=== PATIENT | male | born 1980 | race Hispanic/Latino ===

== ENCOUNTER 2017-05-24 18:44 | Emergency (ER) | payer OTHER ==
[2017-05-24 19:04] VITALS: BP 120/61; PULSE 94; RESP 16; TEMP 101.1; O2SAT 100
[2017-05-24] MEDS ORDERED: Sodium Chloride 0.9% 1,000 ML IV STA (19:25)
--- NOTE | 2017-05-24 19:25 | ED PDOC ---
Upper Extremity Pain/Injury Time Seen by Provider: 05/24/17 19:16 Chief Complaint (Nursing): Upper Extremity Problem/Injury Chief Complaint (Provider): elbow injury History Per: Patient History/Exam Limitations: no limitations Additional Complaint(s): 36yo M in ED for evalof right elbow pain x 2 days states she noted swelling first night then noted worsening swelling, redness, and pain. admits to fever today, redness warmth and pain with ROM of elbow. no previous injury Past Medical History Reviewed: Historical Data, Nursing Documentation, Vital Signs Vital Signs: Last Vital Signs Temp 101.1 F H 05/24/17 19:01 Pulse 94 H 05/24/17 19:01 Resp 16 05/24/17 19:01 BP 120/61 05/24/17 19:01 Pulse Ox 100 05/24/17 19:01 - Medical History PMH: No Chronic Diseases - Family History Family History: States: No Known Family Hx - Home Medications Home Medications: Ambulatory Orders Medication Instructions Recorded Cephalexin [cephalexin] 500 mg PO BID #20 cap 05/24/17 Clindamycin [Cleocin] 300 mg PO TID #30 cap 05/24/17 - Allergies Allergies/Adverse Reactions: Allergies Allergy/AdvReac Type Severity Reaction Status Date / Time No Known Allergies Allergy Verified 05/24/17 19:01 Review of Systems ROS Statement: Except As Marked, All Systems Reviewed And Found Negative Constitutional: Positive for: Fever, Chills Musculoskeletal: Positive for: Arm Pain Physical Exam - Reviewed Nursing Documentation Reviewed: Yes Vital Signs Reviewed: Yes - Physical Exam Appears: Positive for: Well, Non-toxic, No Acute Distress Skin: Positive for: Normal Color, Warm, DRY Cardiovascular/Chest: Positive for: Regular Rate, Rhythm Respiratory: Positive for: CNT, Normal Breath Sounds Gastrointestinal/Abdominal: Positive for: Other (right elbow: swelling tenderness erythema streaking FROm good pulse) Back: Positive for: Normal Inspection Extremity: Positive for: Normal ROM Neurologic/Psych: Positive for: Alert, Oriented - Laboratory Results Result Diagrams: 05/24/17 20:00 05/24/17 20:00 - ECG O2 Sat by Pulse Oximetry: 100 - Progress 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 looks well. Pt will be d/c with clindamycin and keflex advised to monitor for worsening symptoms and to f.u up with the nearest ER or PMD. Disposition - Clinical Impression Clinical Impression: Bursitis due to bacterial infection - Patient ED Disposition Is Patient to be Admitted: No Counseled Patient/Family Regarding: Studies Performed, Diagnosis, Need For Followup, Rx Given - Disposition Referrals: [facility] [Outside] Disposition: Routine/Home Disposition Time: 21:02 Condition: IMPROVED Prescriptions: Cephalexin [cephalexin] 500 mg PO BID #20 cap Clindamycin [Cleocin] 300 mg PO TID #30 cap Instructions: Cellulitis (DC) Forms: [facility] ED School/Work Excuse
[2017-05-24 20:04] LABS: BASO # 0.1 K/uL (0.0-0.2); BASO % 0.8 % (0.0-2.0); EOS # 0.1 K/uL (0.0-0.7); EOS % 0.7 % (0.0-4.0); HEMATOCRIT 44.9 % (35.0-51.0); LYMPH # 2.3 K/uL (1.0-4.3); LYMPH % 16.4 % (20.0-40.0); MEAN CELL VOLUME 87.7 fl (80.0-94.0); MEAN CORPUSCULAR HEMOGLOBIN 28.5 pg (27.0-31.0); MEAN CORPUSCULAR HGB CONC 32.5 g/dL (33.0-37.0); MEAN PLATELET VOLUME 7.5 fl (7.2-11.7); MONO # 1.5 K/uL (0.0-0.8); MONO % 10.5 % (0.0-10.0); NEUT # 9.9 K/uL (1.8-7.0); NEUT % 71.6 % (50.0-75.0); RED CELL DISTRIBUTION WIDTH 13.5 % (11.5-14.5); WHITE BLOOD COUNT 13.8 K/uL (4.8-10.8)
[2017-05-24] MEDS ORDERED: cefTRIAXone (Rocephin) 1 gm Inj ONE (20:04)
[2017-05-24 20:19] LABS: ALB/GLOB RATIO 1.7 (1.0-2.1); ALKALINE PHOSPHATASE 81 U/L (38-126); ALT/SGPT 80 U/L (21-72); AST/SGOT 36 U/L (17-59); BILIRUBIN,TOTAL 0.6 mg/dl (0.2-1.3); BLOOD UREA NITROGEN 13 mg/dl (9-20); CALCIUM 9.8 mg/dL (8.4-10.2); CARBON DIOXIDE 24 mmol/L (22-30); CHLORIDE 105 mmol/L (98-107); GFR AFRICAN-AMERICAN > 60; GLUCOSE,RANDOM 96 mg/dL (75-110); POTASSIUM 4.3 MMOL/L (3.6-5.0); SODIUM 141 mmol/l (132-148); TOTAL PROTEIN 7.6 G/DL (6.3-8.2)
--- NOTE | 2017-05-25 09:48 | RAD ---
PROCEDURE: Radiographs of the right elbow. History small section Celexa that HISTORY: swelling infection COMPARISON: No prior. FINDINGS: BONES: Normal. No fracture. JOINTS: Normal. No osteoarthritis. SOFT TISSUES: NormalAll soft tissue swelling dorsal to the olecranon process possibly reflecting olecranon bursitis. Rule out cellulitis. . JOINT EFFUSION: None. OTHER FINDINGS: None. IMPRESSION: Soft tissue swelling dorsal to the olecranon process. Cellulitis versus olecranon bursitis. No evidence of fracture.
== END 2017-05-24 21:31 | disposition home or self-care (01) ==
LOC: H.ER 18:44
DX: M71.121 Other infective bursitis, right elbow (principal)